=== PATIENT | male | born 1980 | race Caucasian/White ===

== ENCOUNTER 2023-08-10 09:01 | Emergency (ER) | payer BC, SELFPAY ==
[2023-08-10 09:10] VITALS: BP 165/108; PULSE 98; RESP 16; TEMP 36.6; O2SAT 100
--- NOTE | 2023-08-10 09:59 | ED.GENADULT ---
HPI - General Adult General Chief complaint: Dental/Oral Stated complaint: tooth ache Time Seen by Provider: 08/10/23 09:18 History of Present Illness HPI narrative: Leonardo Hopson is a 42 y/o male who presents with reports of having a broken tooth to the left lower area a few years ago but reports he started to have increased pain for the past 2 days / he rates his pain is at an 8/10. Denies nausea/vomiting/ abdominal pain/ denies difficulty swelling no facial swelling. Related Data Allergies Allergy/AdvReac Type Severity Reaction Status Date / Time No Known Allergies Allergy Unverified 10/31/17 13:19 Review of Systems Review of Systems: CONSTITUTIONAL: Denies fever, chills, or sweats. EYES: Denies visual changes, redness, or discharge. ENT: Denies rhinorrhea, congestion, sore throat, Complains of left lower toothache that has been getting worse over the past 2 days. CARDIOVASCULAR: Denies chest pain, palpitations, or edema. RESPIRATORY: Denies cough or dyspnea. GASTROINTESTINAL: Denies abdominal pain, nausea, vomiting, or diarrhea. GENITOURINARY: Denies dysuria or hematuria. SKIN: Denies rash or itching. MUSCULOSKELETAL: Denies back pain, joint pain, or myalgia. NEUROLOGIC: Denies headache, numbness, dizziness, or weakness. PSYCHIATRIC: Denies anxiety or depression. Exam Narrative: GENERAL: Well-appearing, well-nourished, and in no acute distress. HEAD: Normocephalic, atraumatic. EYES: PERRLA and EOMI. ENT: Nares clear, no rhinorrhea or epistaxis. Mucous membranes moist. Oropharynx without tonsillar hypertrophy exudate or other lesions. Evidence of tooth decay to most of his teeth/ noted to have lost a tooth to the bottom left area as he stated/ no obvious or palpated abscess noted on exam NECK: Supple. No adenopathy or masses. No carotid bruits or JVD CHEST: Clear to auscultation. No respiratory distress. No wheezes rales or rhonchi HEART: Regular rate and rhythm. No murmur heard. Normal peripheral pulses. ABDOMEN: Soft, nontender, nondistended, normal active bowel sounds. EXTREMITIES: Normal range of motion. No edema. SKIN: Warm, dry, no rash. NEURO: No focal deficits. Alert and oriented x3. PSYCH: Normal mood and affect. Course Vital Signs Vital signs: Vital Signs Temperature 36.6 C 08/10/23 09:10 Pulse Rate 98 08/10/23 09:10 Respiratory Rate 16 08/10/23 09:10 Blood Pressure 165/108 H 08/10/23 09:10 Pulse Oximetry 100 08/10/23 09:10 Oxygen Delivery Room Air 08/10/23 09:10 Temperature 36.6 C 08/10/23 09:10 Pulse Rate 98 08/10/23 09:10 Respiratory Rate 16 08/10/23 09:10 Blood Pressure 165/108 H 08/10/23 09:10 Pulse Oximetry 100 08/10/23 09:10 Oxygen Delivery Room Air 08/10/23 09:10 Medical Decision Making MDM Narrative Medical decision making narrative: On exam pt is noted to have a missing tooth to the left lower No palpable abscess/ fluctuance noted on exam No facial swelling/ airway patent No fever/chills/ evidence of systemic symptoms Plan to treat his pain and start antibiotics with dental referrals. Discussed plan with pt and all questions answered patient agrees with d/c plan Medical Records Medical records reviewed: Yes I reviewed the external patient's medical records. Vital Signs Vital Signs: Vital Signs Temperature 36.6 C 08/10/23 09:10 Pulse Rate 98 08/10/23 09:10 Respiratory Rate 16 08/10/23 09:10 Blood Pressure 165/108 H 08/10/23 09:10 Pulse Oximetry 100 08/10/23 09:10 Oxygen Delivery Room Air 08/10/23 09:10 Temperature 36.6 C 08/10/23 09:10 Pulse Rate 98 08/10/23 09:10 Respiratory Rate 16 08/10/23 09:10 Blood Pressure 165/108 H 08/10/23 09:10 Pulse Oximetry 100 08/10/23 09:10 Oxygen Delivery Room Air 08/10/23 09:10 VItals reviewed by me. Lab Data Lab results reviewed: Yes I reviewed the patient's lab results. Discharge Plan Discharge Clinical Impression: Renet
[2023-08-10] MEDS: PENICILLIN V POTASSIUM 250 MG TABLET 500 MG PO (10:10)
[2023-08-10] MEDS: HYDROcodone/acetaminophen (*CRX) 5-325 MG TABLET 1 TAB PO (10:10)
[2023-08-10] MEDS: KETOROLAC 30 MG/ML VIAL (*BKC) IM (10:10)
[2023-08-10] MEDS: LIDOCAINE HCL 2% VISC SOLN 15 ML UDC PO (10:11)
== END 2023-08-10 10:20 | disposition home or self-care (01) ==
PROVIDERS: Emergency Provider Nurse Practitioner Family
DX: K02.9 Dental caries, unspecified (principal)
CPT/HCPCS: 90471; 96372; 99283; A9270; J1885

== ENCOUNTER 2024-10-06 09:13 | Emergency (ER) | payer BC, SELFPAY ==
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
[2024-10-06 09:18] VITALS: BP 155/110; PULSE 104; RESP 16; TEMP 36.6; O2SAT 100
--- NOTE | 2024-10-06 10:15 | PC.NURSE ---
Patient placed in C collar by this RN due to neck and back pain
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
--- NOTE | 2024-10-06 11:00 | PC.NURSE ---
C-collar placed by SHERRILL Mccarty upon pt. arrival. Pt. states this thing is so uncomfortable. It's doing more harm than good. Pt. educated that it is not doing more harm than good, and the risks of self removing the c-collar, including paralysis. Pt. states I understand the risks. C-collar self removed by pt.
--- NOTE | 2024-10-06 12:27 | PC.NURSE ---
[facility] Unit Sec. ordered lunch, gave turkey sandwich, and snack.
--- NOTE | 2024-10-06 12:42 | PC.NURSE ---
Pt. requesting pain medicine for 05/02 neck pain. MD Duncan notified and verbal order given. See MAR.
[2024-10-06] MEDS: ACETAMINOPHEN 325 MG TABLET 650 MG PO (12:53)
[2024-10-06] MEDS: IBUPROFEN 600 MG TABLET PO (12:53)
== END 2024-10-06 13:30 | disposition home or self-care (01) ==
PROVIDERS: Emergency Provider Emergency Medicine
DX: M54.2 Cervicalgia (principal); M47.812 Spondylosis without myelopathy or radiculopathy, cervical region; Z59.00 Homelessness unspecified; Y04.0XXA Assault by unarmed brawl or fight, initial encounter
CPT/HCPCS: 70450; 72125; 99284; A9270; L0140

== ENCOUNTER 2024-10-06 15:35 | Emergency (ER) | payer BC, SELFPAY ==
[2024-10-06 15:59] VITALS: BP 142/83; PULSE 98; RESP 16; TEMP 37.1; O2SAT 98
[2024-10-06 16:00] LABS: Basophils Absolute Auto 0.1 K/mm3 (0.0-0.1); Basophils Percent Auto 0.9 % (0.2-1.2); Eosinophils Absolute Auto 0.4 K/mm3 (0-0.3); Hematocrit 42.3 % (42.0-52.0); Hemoglobin 13.7 g/dL (14.0-18.0); Immature Granulocyte Absolute 0.04 K/mm3 (0.00-0.031); Immature Granulocyte Percent A 0.5 % (0-0.5); Lymphocytes Absolute Auto 2.64 K/mm3 (0.9-3.2); Lymphocytes Percent Auto 31.2 % (18.3-44.2); Mean Corpuscular HGB Conc 32.4 g/dl (32-36); Mean Corpuscular Hemoglobin 28.9 pg (26-34); Mean Corpuscular Volume 89.2 fl (80-100); Mean Platelet Volume 9.9 fl (7.4-10.4); Monocytes Absolute Auto 0.7 K/mm3 (0.1-0.6); Monocytes Percent Auto 8.5 % (2.6-8.5); Neutrophils Absolute Auto 4.6 K/mm3 (1.3-6.7); Neutrophils Percent Auto 53.9 % (45.5-73.1); Platelet Count Result 330 k/mm3 (150-375); Red Blood Count 4.74 M/mm3 (4.6-6.20); Red Cell Distribution Width 13.6 % (11.5-14.5); White Blood Count 8.5 K/mm3 (4.5-10.0)
[2024-10-06 16:09] LABS: Acetaminophen < 10 ug/mL (10-30); Ethanol < 10 mg/dL (<10); Salicylate < 1.0 mg/dL (2-20)
[2024-10-06 16:18] LABS: Alanine Aminotransferase 78 U/L (6-50); Albumin Level 4.2 g/dL (3.5-5.1); Alkaline Phosphatase 110 U/L (38-126); Anion Gap 8 mmol/L (4-12); Aspartate Amino Transferase 55 U/L (17-59); Bilirubin,Total 0.4 mg/dL (0.2-1.3); Blood Urea Nitrogen 25 mg/dL (9-20); Calcium 8.9 mg/dL (8.4-10.2); Carbon Dioxide 28 mmol/L (22-30); Chloride 102 mmol/L (98-107); Estimated Glomerular Filt Rate > 60; Glucose 110 mg/dL (65-110); Potassium 4.2 mmol/L (3.4-5.0); Sodium 138 mmol/L (137-145)
[2024-10-06 16:36] LABS: Influenza A QL RT-PCR Negative (Negative); Influenza B QL RT-PCR Negative (Negative); RSV RNA, RT-PCR Negative (Negative); SARS-CoV-2 RNA PCR Negative (Negative)
--- NOTE | 2024-10-06 16:38 | ED_ITS ---
HPI - Psych General Chief Complaint: Psychiatric Symptoms <Gaby Johnson PA-C - Last Filed: 10/08/24 17:05> Stated Complaint: SI <FELICIA Avina Last Filed: 10/08/24 17:05> Time Seen by Provider: 10/06/24 15:46 <Gaby Johnson PA-C - Last Filed: 10/08/24 17:05> Source: patient <FELICIA Avina Last Filed: 10/08/24 17:05> Mode of arrival: ambulatory <FELICIA Avina Last Filed: 10/08/24 17:05> Limitations: no limitations <FELICIA Avina Last Filed: 10/08/24 17:05> History of Present Illness HPI Narrative: This is a 43-year-old male that presents to the emergency department for suicidal ideations. Reports he has a plan, but does not wish to disclose this at this time. He does have history of previous attempts of self-harm as well as psychiatric hospitalizations. Patient with history of drug abuse including methamphetamine. Denies any thoughts of harming anyone else. <Gaby Johnson PA-C - Last Filed: 10/08/24 17:05> Related Data Allergies/Adverse Reactions: Allergies Allergy/AdvReac Type Severity Reaction Status Date / Time imipramine Allergy Rash Verified 10/06/24 15:38 <Gaby Johnson PA-C - Last Filed: 10/08/24 17:05> Review of Systems 2 Review of Systems: PSYCHIATRIC: Reports anxiety and depression. <FELICIA Avina Last Filed: 10/08/24 17:05> All systems reviewed & are unremarkable except as noted in HPI and below < Gaby Johnson PA-C - Last Filed: 10/08/24 17:05> [facility] Past Medical History Medical History: Medical History (Updated 10/07/24 @ 00:00 by Emery Nam) History of depression <FELICIA Avina Last Filed: 10/08/24 17:05> Social History Social History: Social History Substance use type: amphetamines and methamphetamine <Gaby Johnson PA-C - Last Filed: 10/08/24 17:05> Exam 2 Narrative: GENERAL: Disheveled, well-nourished, and in no acute distress. HEAD: Normocephalic, atraumatic. EYES: EOMI. CHEST: No respiratory distress. HEART: Regular rate EXTREMITIES: Normal range of motion. No edema. SKIN: Warm, dry, no rash. NEURO: No focal deficits. Alert and oriented x3. PSYCH: Normal mood and affect <Gaby Johnson PA-C - Last Filed: 10/08/24 17:05> Course GRADUATE ASSISTANT ATHLETIC TRAINER/PA Physician Supervision Initial DAVE had discussed patient with me. I am aware they were in the department earlier today and had re-presented. Noted suicidal ideation but would not say a plan, telling PA, unspecified. Based on their interaction with patient, we filled out FOID reporting together as per protocol. Signed out to another PA and I was present with Crisis Team's assessement. Prior to crisis arriving, patient had been noted to request wanting to leave and reportedly throwing food on the ground initially before then accepting food and eating multiple sandwiches. Patient at times loud and verbal but episodes were brief. Security was nearby but patient did not require medication for agitation/safety. I was made aware that patient would be discharged. <Monique Donaldson MD - Last Filed: 10/07/24 11:46> Vital Signs Vital signs: Vital Signs Temperature 98.8 F 10/06/24 15:59 Pulse Rate 98 10/06/24 15:59 Respiratory Rate 16 10/06/24 15:59 Blood Pressure 142/83 H 10/06/24 15:59 Pulse Oximetry 98 10/06/24 15:59 Oxygen Delivery Room Air 10/06/24 15:59 Temperature 98.8 F 10/06/24 15:59 Pulse Rate 89 10/06/24 22:45 Respiratory Rate 18 10/06/24 22:45 Blood Pressure 148/80 H 10/06/24 22:45 Pulse Oximetry 99 10/06/24 22:45 Oxygen Delivery Room Air 10/06/24 15:59 <Gaby Johnson PA-C - Last Filed: 10/08/24 17:05> Vital Signs Temperature 98.8 F 10/06/24 15:59 Pulse Rate 98 10/06/24 15:59 Respiratory Rate 16 10/06/24 15:59 Blood Pressure 142/83 H 10/06/24 15:59 Pulse Oximetry 98 10/06/24 15:59 Oxygen Delivery Room Air 10/06/24 15:59 Temperature 98.8 F 10/06/24 15:59 Pulse Rate 89 10/06/24 22:45 Respiratory Rate 18 10/06/24 22:45 Blood Pressure 148/80 H 10/06/24 22:45 Pulse Oximetry 99 10/06/24 22:45 Oxygen Delivery Room Air 10/06/24 15:59 <Monique Donaldson MD - Last Filed: 10/07/24 11:46> Vital Signs Temperature 98.8 F 10/06/24 15:59 Pulse Rate 98 10/06/24 15:59 Respiratory Rate 16 10/06/24 15:59 Blood Pressure 142/83 H 10/06/24 15:59 Pulse Oximetry 98 10/06/24 15:59 Oxygen Delivery Room Air 10/06/24 15:59 Temperature 98.8 F 10/06/24 15:59 Pulse Rate 89 10/06/24 22:45 Respiratory Rate 18 10/06/24 22:45 Blood Pressure 148/80 H 10/06/24 22:45 Pulse Oximetry 99 10/06/24 22:45 Oxygen Delivery Room Air 10/06/24 15:59 <Ca Leon PA-C - Last Filed: 10/07/24 02:44> MDM - Psych MDM Narrative Medical decision making narrative: RG - Care signed out to myself at shift change pending crisis evaluation and disposition. Patient had resting comfortably and calmly, however did get agitated at 1 point and wanted to leave the facility, demanding his belongings. Security was called to bedside and helped escort patient back to room. Crisis still had not been here to evaluate the patient. Based on the report I was given from previous provider with patient's report of suicidal ideation with possible plan, we advised patient that he is not able to leave the facility at this time I did feel he is evaluated by our crisis team. I was able to calm him down and deescalate. He was given food to eat and was willing to be cooperative. Crisis team did come to evaluate patient and patient declined any suicidal ideation whatsoever. States he wanted to go to a hospital for rehab. Is unclear rehab for what. He does have history of methamphetamine abuse, however drug screen here today was negative. Patient refused to obtain safety plan with crisis team. States he does not want any of their resources or anything else to do with them. He stated he did not want to be placed in a psychiatric facility, just wants to leave the ER. I discussed this with crisis team. We did not feel there was enough to make patient involuntary at this time. He declined additional resources. Will be discharged with strict return precautions. Escorted out by security. <Ca Leon PA-C - Last Filed: 10/07/24 02:44> Medical Records Attestation: I reviewed the patient's medical records. <Ca Leon PA-C - Last Filed: 10/07/24 02:44> Lab Data Attestation: I reviewed the patient's lab results. <Ca Leon PA-C - Last Filed: 10/07/24 02:44> Result diagrams: 10/06/24 15:51 10/06/24 15:51 <Gaby Johnson PA-C - Last Filed: 10/08/24 17:05> Labs: Lab Results 10/06/24 10/06/24 Range/Units 15:51 16:56 WBC 8.5 (4.5-10.0) K/mm3 RBC 4.74 (4.6-6.20) M/mm3 Hgb 13.7 L (14.0-18.0) g/dL Hct 42.3 (42.0-52.0) % MCV 89.2 (80-100) fl MCH 28.9 (26-34) pg MCHC 32.4 (32-36) g/dl RDW 13.6 (11.5-14.5) % Plt Count 330 (150-375) k/mm3 MPV 9.9 (7.4-10.4) fl Immature Gran % (Auto) 0.5 (0-0.5) % Neut % (Auto) 53.9 (45.5-73.1) % Lymph % (Auto) 31.2 (18.3-44.2) % [place] % (Auto) 8.5 (2.6-8.5) % Eos % (Auto) 5.0 H (0-4.4) % Baso % (Auto) 0.9 (0.2-1.2) % Lymph # (Auto) 2.64 (0.9-3.2) K/mm3 [place] # (Auto) 0.7 H (0.1-0.6) K/mm3 Eos # (Auto) 0.4 H (0-0.3) K/mm3 Baso # (Auto) 0.1 (0.0-0.1) K/mm3 Abs Immat Gran (auto) 0.04 H (0.00-0.031) K/mm3 Absolute Neuts (auto) 4.6 (1.3-6.7) K/mm3 Absolute Nucleated RBC 0.000 (0.0-0.012) K/mm3 Nucleated RBC % 0.0 (0.0-0.2) % Sodium 138 (137-145) mmol/L Potassium 4.2 (3.4-5.0) mmol/L Chloride 102 (98-107) mmol/L Carbon Dioxide 28 (22-30) mmol/L Anion Gap 8 (4-12) mmol/L BUN 25 H (9-20) mg/dL Creatinine 0.77 (0.7-1.3) mg/dL Estim Creat Clear Calc Not Reportable Estimated GFR > 60 (59 - ) Glucose 110 (65-110) mg/dL Calcium 8.9 (8.4-10.2) mg/dL Total Bilirubin 0.4 (0.2-1.3) mg/dL AST 55 (17-59) U/L ALT 78 H (6-50) U/L Alkaline Phosphatase 110 (38-126) U/L Total Protein 8.0 (6.3-8.2) g/dL Albumin 4.2 (3.5-5.1) g/dL TSH (Reflex) 1.110 (0.465-4.68) uIU/mL Urine Color Yellow (Yellow) Urine Appearance Clear (Clear) Urine pH 5.5 (5.0-9.0) Ur Specific [place] 1.023 (1.001-1.035) Urine Protein Negative (Negative) mg/dL Urine Glucose (UA) Negative (Negative) mg/dL Urine Ketones Trace H (Negative) mg/dL Ur Blood (Man) Negative (Negative) Urine Nitrate Negative (Negative) Urine Bilirubin Negative (Negative) Urine Urobilinogen 0.2 (<2.0) mg/dL Leukocyte Esterase Rfl Negative (Negative) MIKE/UL Salicylates < 1.0 L (2-20) mg/dL Urine Opiates Screen Negative (Negative) Urine Methadone Screen Negative (Negative) Acetaminophen < 10 L (10-30) ug/mL Ur Barbiturates Screen Negative (Negative) Ur Phencyclidine Scrn Negative (Negative) Ur Amphetamine Screen Negative (Negative) U Benzodiazepines Scrn Negative (Negative) Urine Cocaine Screen Negative (Negative) U Cannabinoids Screen Negative (Negative) Ethyl Alcohol < 10 (<10) mg/dL Influenza A (RT-PCR) Negative (Negative) Influenza B (RT-PCR) Negative (Negative) RSV (RT-PCR) Negative (Negative) SARS-CoV-2 RNA (RT-PCR) Negative (Negative) <Gaby Johnson PA-C - Last Filed: 10/08/24 17:05> Lab Results 10/06/24 10/06/24 Range/Units 15:51 16:56 WBC 8.5 (4.5-10.0) K/mm3 RBC 4.74 (4.6-6.20) M/mm3 Hgb 13.7 L (14.0-18.0) g/dL Hct 42.3 (42.0-52.0) % MCV 89.2 (80-100) fl MCH 28.9 (26-34) pg MCHC 32.4 (32-36) g/dl RDW 13.6 (11.5-14.5) % Plt Count 330 (150-375) k/mm3 MPV 9.9 (7.4-10.4) fl Immature Gran % (Auto) 0.5 (0-0.5) % Neut % (Auto) 53.9 (45.5-73.1) % Lymph % (Auto) 31.2 (18.3-44.2) % [place] % (Auto) 8.5 (2.6-8.5) % Eos % (Auto) 5.0 H (0-4.4) % Baso % (Auto) 0.9 (0.2-1.2) % Lymph # (Auto) 2.64 (0.9-3.2) K/mm3 [place] # (Auto) 0.7 H (0.1-0.6) K/mm3 Eos # (Auto) 0.4 H (0-0.3) K/mm3 Baso # (Auto) 0.1 (0.0-0.1) K/mm3 Abs Immat Gran (auto) 0.04 H (0.00-0.031) K/mm3 Absolute Neuts (auto) 4.6 (1.3-6.7) K/mm3 Absolute Nucleated RBC 0.000 (0.0-0.012) K/mm3 Nucleated RBC % 0.0 (0.0-0.2) % Sodium 138 (137-145) mmol/L Potassium 4.2 (3.4-5.0) mmol/L Chloride 102 (98-107) mmol/L Carbon Dioxide 28 (22-30) mmol/L Anion Gap 8 (4-12) mmol/L BUN 25 H (9-20) mg/dL Creatinine 0.77 (0.7-1.3) mg/dL Estim Creat Clear Calc Not Reportable Estimated GFR > 60 (59 - ) Glucose 110 (65-110) mg/dL Calcium 8.9 (8.4-10.2) mg/dL Total Bilirubin 0.4 (0.2-1.3) mg/dL AST 55 (17-59) U/L ALT 78 H (6-50) U/L Alkaline Phosphatase 110 (38-126) U/L Total Protein 8.0 (6.3-8.2) g/dL Albumin 4.2 (3.5-5.1) g/dL TSH (Reflex) 1.110 (0.465-4.68) uIU/mL Urine Color Yellow (Yellow) Urine Appearance Clear (Clear) Urine pH 5.5 (5.0-9.0) Ur Specific [place] 1.023 (1.001-1.035) Urine Protein Negative (Negative) mg/dL Urine Glucose (UA) Negative (Negative) mg/dL Urine Ketones Trace H (Negative) mg/dL Ur Blood (Man) Negative (Negative) Urine Nitrate Negative (Negative) Urine Bilirubin Negative (Negative) Urine Urobilinogen 0.2 (<2.0) mg/dL Leukocyte Esterase Rfl Negative (Negative) MIKE/UL Salicylates < 1.0 L (2-20) mg/dL Urine Opiates Screen Negative (Negative) Urine Methadone Screen Negative (Negative) Acetaminophen < 10 L (10-30) ug/mL Ur Barbiturates Screen Negative (Negative) Ur Phencyclidine Scrn Negative (Negative) Ur Amphetamine Screen Negative (Negative) U Benzodiazepines Scrn Negative (Negative) Urine Cocaine Screen Negative (Negative) U Cannabinoids Screen Negative (Negative) Ethyl Alcohol < 10 (<10) mg/dL Influenza A (RT-PCR) Negative (Negative) Influenza B (RT-PCR) Negative (Negative) RSV (RT-PCR) Negative (Negative) SARS-CoV-2 RNA (RT-PCR) Negative (Negative) <Monique Donaldson MD - Last Filed: 10/07/24 11:46> Lab Results 10/06/24 10/06/24 Range/Units 15:51 16:56 WBC 8.5 (4.5-10.0) K/mm3 RBC 4.74 (4.6-6.20) M/mm3 Hgb 13.7 L (14.0-18.0) g/dL Hct 42.3 (42.0-52.0) % MCV 89.2 (80-100) fl MCH 28.9 (26-34) pg MCHC 32.4 (32-36) g/dl RDW 13.6 (11.5-14.5) % Plt Count 330 (150-375) k/mm3 MPV 9.9 (7.4-10.4) fl Immature Gran % (Auto) 0.5 (0-0.5) % Neut % (Auto) 53.9 (45.5-73.1) % Lymph % (Auto) 31.2 (18.3-44.2) % [place] % (Auto) 8.5 (2.6-8.5) % Eos % (Auto) 5.0 H (0-4.4) % Baso % (Auto) 0.9 (0.2-1.2) % Lymph # (Auto) 2.64 (0.9-3.2) K/mm3 [place] # (Auto) 0.7 H (0.1-0.6) K/mm3 Eos # (Auto) 0.4 H (0-0.3) K/mm3 Baso # (Auto) 0.1 (0.0-0.1) K/mm3 Abs Immat Gran (auto) 0.04 H (0.00-0.031) K/mm3 Absolute Neuts (auto) 4.6 (1.3-6.7) K/mm3 Absolute Nucleated RBC 0.000 (0.0-0.012) K/mm3 Nucleated RBC % 0.0 (0.0-0.2) % Sodium 138 (137-145) mmol/L Potassium 4.2 (3.4-5.0) mmol/L Chloride 102 (98-107) mmol/L Carbon Dioxide 28 (22-30) mmol/L Anion Gap 8 (4-12) mmol/L BUN 25 H (9-20) mg/dL Creatinine 0.77 (0.7-1.3) mg/dL Estim Creat Clear Calc Not Reportable Estimated GFR > 60 (59 - ) Glucose 110 (65-110) mg/dL Calcium 8.9 (8.4-10.2) mg/dL Total Bilirubin 0.4 (0.2-1.3) mg/dL AST 55 (17-59) U/L ALT 78 H (6-50) U/L Alkaline Phosphatase 110 (38-126) U/L Total Protein 8.0 (6.3-8.2) g/dL Albumin 4.2 (3.5-5.1) g/dL TSH (Reflex) 1.110 (0.465-4.68) uIU/mL Urine Color Yellow (Yellow) Urine Appearance Clear (Clear) Urine pH 5.5 (5.0-9.0) Ur Specific [place] 1.023 (1.001-1.035) Urine Protein Negative (Negative) mg/dL Urine Glucose (UA) Negative (Negative) mg/dL Urine Ketones Trace H (Negative) mg/dL Ur Blood (Man) Negative (Negative) Urine Nitrate Negative (Negative) Urine Bilirubin Negative (Negative) Urine Urobilinogen 0.2 (<2.0) mg/dL Leukocyte Esterase Rfl Negative (Negative) MIKE/UL Salicylates < 1.0 L (2-20) mg/dL Urine Opiates Screen Negative (Negative) Urine Methadone Screen Negative (Negative) Acetaminophen < 10 L (10-30) ug/mL Ur Barbiturates Screen Negative (Negative) Ur Phencyclidine Scrn Negative (Negative) Ur Amphetamine Screen Negative (Negative) U Benzodiazepines Scrn Negative (Negative) Urine Cocaine Screen Negative (Negative) U Cannabinoids Screen Negative (Negative) Ethyl Alcohol < 10 (<10) mg/dL Influenza A (RT-PCR) Negative (Negative) Influenza B (RT-PCR) Negative (Negative) RSV (RT-PCR) Negative (Negative) SARS-CoV-2 RNA (RT-PCR) Negative (Negative) <Ca Leon PA-C - Last Filed: 10/07/24 02:44> Critical Care Time Critical Care Time Critical Care Time: No <FELICIA Avina Last Filed: 10/08/24 17:05> Discharge Plan Discharge Clinical Impression: History of suicidal ideation, Homelessness, History of methamphetamine use <FELICIA Avina Last Filed: 10/08/24 17:05> Patient Disposition: Home, Self-Care <FELICIA Avina Last Filed: 10/08/24 17:05> Condition: Stable <FELICIA Avina Last Filed: 10/08/24 17:05> Instructions: Antibiotic Form, Depression (ED), Methamphetamine Use Disorder (ED), Help Prevent Suicide (ED) <FELICIA Avina Last Filed: 10/08/24 17:05> Additional Instructions: Return to the ED if you experience recurrent thoughts of wanting to harm yourself or anyone else, feeling unsafe where you are, chest pain, difficulty breathing, or any other symptoms of concern. <FELICIA Avina Last Filed: 10/08/24 17:05> Patient Language: Tajik <FELICIA Avina Last Filed: 10/08/24 17:05> Prescriptions: No Action penicillin V potassium 500 mg tablet 500 mg PO QID Qty: 56 0RF naproxen 500 mg tablet 500 mg PO BID PRN (Reason: pain) Qty: 28 0RF <Gaby Johnson PA-C - Last Filed: 10/08/24 17:05> Follow-up/Referrals: UNKNOWN,DOCTOR [Primary Care Provider] - <Gaby Johnson PA-C - Last Filed: 10/08/24 17:05> Time of Disposition: 22:34 <Gaby Johnson PA-C - Last Filed: 10/08/24 17:05> 22:34 <Monique Donaldson MD - Last Filed: 10/07/24 11:46> 22:34 <Ca Leon PA-C - Last Filed: 10/07/24 02:44>
[2024-10-06 17:17] LABS: Add Urine Microscopic? NO; Appearance Urine Clear (Clear); Bilirubin Urine Negative (Negative); Blood Urine Negative (Negative); Color Urine Yellow (Yellow); Glucose Urine UA Negative (Negative); Ketones Urine Trace mg/dL (Negative); Leukocyte Esterase Ur Negative LEU/UL (Negative); Nitrate Urine Negative (Negative); Protein Urine Negative (Negative); Specific Grav Ur 1.023 (1.001-1.035); Urobilinogen Urine 0.2 mg/dL (<2.0); pH Urine 5.5 (5.0-9.0)
[2024-10-06 17:33] LABS: Amphetamine Screen Urine Negative (Negative); Barbiturate Screen Urine Negative (Negative); Benzodiazepines Screen Urine Negative (Negative); Cannabinoid Screen Urine Negative (Negative); Cocaine Screen Urine Negative (Negative); Methadone Screen Urine Negative (Negative); Opiate Screen Urine Negative (Negative); Phencyclidine Screen Urine Negative (Negative)
--- NOTE | 2024-10-06 18:57 | PC.NURSE ---
Crisis called requesting chart be faxed to [facility]
--- NOTE | 2024-10-06 21:58 | PC.NURSE ---
[facility] with the [facility]. Patient still in need of urine sample. I have made the patient aware.
[2024-10-06 22:45] VITALS: BP 148/80; PULSE 89; RESP 18; O2SAT 99
== END 2024-10-06 22:46 | disposition home or self-care (01) ==
PROVIDERS: Emergency Medicine; Emergency Provider Physician Assistant
DX: R45.851 Suicidal ideations (principal); F32.A Depression, unspecified; Z20.822 Contact with and (suspected) exposure to COVID-19; Z59.00 Homelessness unspecified
CPT/HCPCS: 36415; 80053; 80143; 80179; 80307; 81003; 82077; 84443; 85025; 87637; 99284